=== PATIENT | female | born 1960 | race Caucasian/White ===

== ENCOUNTER → 2016-06-13 | Outpatient (CLI) | payer OTHER ==
[~2016-06-13] MED LIST: DEPO METHYLPREDNISOLONE 40 MG/ML SDV ONE; IOPAMIDOL (ISOVUE 370) 100 ML BTL IV ONE; LIDOCAINE 1% 30 ML SDV ONE; NA BICARBONATE 50 MEQ/50 ML VIAL ONE; ROPIVACAINE HCL 150 MG/30 ML INJ ONE
--- NOTE | 2016-06-13 14:18 | DX ---
Fluoroscopically Guided right hip Joint Injection With long acting anesthetic and steroid. Clinical History: Right hip osteoarthritis. Prior pelvic reconstruction. Crosscutting Measure #226: Current tobacco user: no. Fluoroscopy time: 0.4 minutes. 1 film. Entrance dose 3.4 mGy. Technique: The patient was advised as to the risks, benefits, and alternatives of the procedure, and written consent was obtained and witnessed after all questions had been answered. The right hip was p repped and draped in the usual sterile fashion. 1% lidocaine was used subcutaneously as a local anest hetic. A 22-gauge spinal needle was advanced under fluoroscopy into the right hip joint. Omnipaque wa s injected to confirm appropriate tip positioning. Subsequently, 40 mg Depo-Medrol and 4 mL ropivacai ne was injected. The needle was removed. The patient tolerated the procedure well, and there were no immediate complications. Impression: Fluoroscopically guided right hip joint injection with long acting anesthetic and steroid .
== END ==
LOC: FIMAGING 13:01
PROVIDERS: ATTEND Orthopaedic Surgery
PROC: 3E0U3BZ Introduction of Anesthetic Agent into Joints, Percutaneous Approach (ICD-10-PCS; principal; 2016-06-13)
PROC: 3E0U329 Introduction of Other Anti-infective into Joints, Percutaneous Approach (ICD-10-PCS; principal; 2016-06-13)
DX: M25.551 Pain in right hip (principal)
CPT/HCPCS: J1020; J2795; Q9967

== ENCOUNTER → 2017-06-14 | Outpatient (CLI) | payer OTHER | LOC: FIMAGING 10:31 | PROVIDERS: ATTEND Physician Assistant | DX: Z12.31 Encounter for screening mammogram for malignant neoplasm of breast (principal) ==